=== PATIENT | female | born 1955 | race Caucasian/White ===

== ENCOUNTER 2016-12-27 21:16 | Inpatient (IN) | payer MEDICAID ==
[~2016-12-27] VITALS: Ht 149.9 cm; Wt 51.3 kg
[2016-12-27 21:19] VITALS: BP 133/60
--- NOTE | 2016-12-27 21:30 | NUR ---
PATIENT PRESENTS TO ED WITH SWOLLEN LEFT EYE. PT DENIES N/V/D; PT HAS OLD SKIN LESIONS BOTH LEGS AND ARMS. LESIONS NOTED ON LEFT SIDE OF SCALP AND SIDE OF HEAD. PT C/O RT SHOULDER BLADE PAIN. PT IS BLIND FROM HER DIABETES; AAOX4 WITH EVEN AND STEADY GAIT WITH ASSIST DUE TO HER BLINDNESS; LUNGS CLEAR BL; HR EVEN AND REGULAR; PT DENIES ANY FEVER, CP, SOB, OR COUGH AT THIS TIME; PATIENT STATES PAIN OF 8/10 AT THIS TIME; VSS; PATIENT POSITIONED FOR COMFORT; HOB ELEVATED; BEDRAILS UP X2; BED DOWN. ER MD MADE AWARE OF PT STATUS.
--- NOTE | 2016-12-27 21:45 | NUR ---
AMBULATED TO ER BED 7
--- NOTE | 2016-12-27 21:51 | NUR ---
Patient being evaluated by physician at bedside.
[2016-12-27] MEDS ORDERED: NACL 0.9% 1,000 ML IV ONE (22:05)
[2016-12-27] MEDS ORDERED: KETOROLAC 30 MG/ML VIAL IVP ONE (22:05)
[2016-12-27 22:24] LABS: BASOPHILS # (AUTO) 0.1 K/uL (0.00-0.22); EOSINOPHILS # (AUTO) 0.2 K/uL (0-0.4); EOSINOPHILS % (AUTO) 2.4 % (0.0-4.0); HEMATOCRIT 33.2 % (36-48); HEMOGLOBIN 10.9 g/dL (12.0-16.0); LYMPHOCYTES # (AUTO) 2.1 K/uL (2.5-16.5); LYMPHOCYTES % (AUTO) 21.6 % (20.5-51.1); MEAN CORPUSCULAR HEMOGLOBIN 28 pg (27-31); MEAN CORPUSCULAR HGB CONC 33 g/dL (33-37); MEAN CORPUSCULAR VOLUME 85 fL (80-94); MONOCYTES # (AUTO) 0.7 K/uL (0.8-1.0); MONOCYTES % (AUTO) 7.5 % (1.7-9.3); NEUTROPHILS # (AUTO) 6.7 K/uL (1.8-7.7); NEUTROPHILS % (AUTO) 67.5 % (42.2-75.2); PLATELET COUNT (AUTO) 282 K/uL (140-450); RED CELL DISTRIBUTION WIDTH 13.6 % (11.6-13.7); WHITE BLOOD COUNT (AUTO) 9.8 K/uL (4.8-10.8)
--- NOTE | 2016-12-27 22:30 | NUR ---
PIV STARTED. LABS DRAWN. PAIN MEDS GIVEN.
--- NOTE | 2016-12-27 22:35 | NUR ---
PT TO CT VIA ANGELA IN STABLE CONDITION
[2016-12-27 22:36] LABS: APPEARANCE,URINE SL CLOUDY (CLEAR); BILIRUBIN,URINE NEGATIVE (NEGATIVE); BLOOD, URINE 2+ (NEGATIVE); COLOR,URINE YELLOW (YELLOW); LEUKOCYTE ESTERASE ,URINE NEGATIVE (NEGATIVE); NITRITE, URINE NEGATIVE (NEGATIVE); PH,URINE 5.5 (5.0-9.0); PROTEIN,URINE 1+ (NEGATIVE); UGLUCOSE 3+ (NEGATIVE); UROBILINOGEN,URINE 0.2 EU/dL (0.2 - 1)
[2016-12-27 22:43] LABS: ANION GAP 11.3 (8-16); CALCIUM 8.7 mg/dL (8.5-10.1); CARBON DIOXIDE 30.1 mmol/L (21-32); CREATININE 0.9 mg/dL (0.6-1.3); POTASSIUM 4.4 mmol/L (3.5-5.1); TOTAL BILIRUBIN 0.5 mg/dL (0.0-1.0); TOTAL PROTEIN, SERUM 8.4 g/dL (6.4-8.2)
[2016-12-27 22:51] LABS: INR 1.1 (0.8-1.2); PARTIAL THROMBOPLASTIN TIME 27.3 secs (22-35.6); PROTHROMBIN TIME 10.3 secs (10.8-13.4)
[2016-12-27 22:52] LABS: LACTIC ACID 1.2 mmol/L (0.4-2.0)
[2016-12-27 22:53] LABS: BACTERIA,URINE 4+ /HPF (None Seen); MUCUS,URINE 4+ /LPF (None Seen); SQUAMOUS EPITHELIAL CELL,UR 0-3 (FEW) /LPF (0-3 (FEW))
--- NOTE | 2016-12-27 23:00 | NUR ---
PT RETURNED FROM CT
[2016-12-27] MEDS ORDERED: CLINDAMYCIN 900 MG in DEXTROSE 5% 100 ML IV ONE (23:05)
[2016-12-27] MEDS ORDERED: LEVOFLOXACIN 500 MG/D5W PREMIX 100 ML IV ONE (23:05)
--- NOTE | 2016-12-27 23:20 | NUR ---
BLOOD SUGAR RE-CK DONE, AND NOTIFIED.
[2016-12-27] MEDS ORDERED: CLINDAMYCIN 900 MG/6 ML VIAL IV ONE (23:25)
[2016-12-28] MEDS ORDERED: INSULIN HUMAN REGULAR 100 UNITS/ML 10 ML VIAL IVP ONE (00:10)
--- NOTE | 2016-12-28 01:17 | NUR ---
Patient will be admitted to care of DR GUO. Admited to TELE. Will go to 113B. Belongings list completed. Report to NINA JAUREGUI.
--- NOTE | 2016-12-28 01:30 | NUR ---
RECEIVED REPORT FROM ED RN FOR CONTINUITY OF CARE. PATIENT IS A&OX4 EAST TIMOR[place] SPEAKING, DISCUSSED PLAN OF CARE WITH PATIENT, ABLE TO VERBALIZE UNDERSTANDING. SHIFT ASSESSMENT DONE, VS TAKEN, STABLE. NO S/S OF RESPIRATORY DISTRESS NOTED ON ROOM AIR. PT DENIES PAIN AT THIS TIME. IV RT AC 22 GAUGE PATENT AND FLUSHED. PT HAS MULTIPLE LESIONS THROUGHOUT BODY AND LEFT EYE SWELLING, SEE PICTURES IN CHART. SAFETY/ FALL PRECAUTIONS ENFORCED. CALL LIGHT WITHIN REACH. WILL CONTINUE TO MONITOR.
[2016-12-28 02:00] VITALS: BP 137/74
--- NOTE | 2016-12-28 02:45 | NUR ---
BLOOD SUGAR TAKEN, 52, PAGED DR. MONSON, AWAITING REPLY.
--- NOTE | 2016-12-28 02:45 | NUR ---
BLOOD SUGAR RETAKEN, 131. NO S/S OF DISTRESS NOTED. Addendum: 12/28/16 at 0622 by Laura Ozuna RN WRONG TIME.
--- NOTE | 2016-12-28 02:53 | NUR ---
SPOKE TO DR. MONSON REGARDING LOW BLOOD SUGAR, DOCTORS TO PUT IN ORDERS.
--- NOTE | 2016-12-28 03:00 | NUR ---
BLOOD SUGAR RETAKEN, 131. NO S/S OF DISTRESS NOTED
[2016-12-28] MEDS ORDERED: ONDANSETRON 4 MG/2 ML VIAL IVP PRN (03:10)
[2016-12-28] MEDS ORDERED: ACETAMINOPHEN 325 MG TAB PO PRN (03:10)
[2016-12-28 04:00] VITALS: BP 152/64
--- NOTE | 2016-12-28 04:02 | NUR ---
VS TAKEN. PT USED BEDPAN, VOIDED. NO S/S OF DISTRESS NOTED.
[2016-12-28 04:30] LABS: CHOL/HDL RATIO 3.7 (1-4.5)
[2016-12-28 04:38] LABS: THYROID STIMULATING HORMONE 2.02 uIU/mL (0.34-3.76)
[2016-12-28] MEDS ORDERED: HYDROcodone/APAP 5/325 MG 1 TAB TAB ONE (05:13)
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
[2016-12-28 07:02] LABS: BASOPHILS # (AUTO) 0.3 K/uL (0.00-0.22); BASOPHILS % (AUTO) 3.9 % (0.0-2.0); EOSINOPHILS # (AUTO) 0.2 K/uL (0-0.4); EOSINOPHILS % (AUTO) 2.6 % (0.0-4.0); HEMATOCRIT 30.1 % (36-48); HEMOGLOBIN 9.8 g/dL (12.0-16.0); LYMPHOCYTES # (AUTO) 1.6 K/uL (2.5-16.5); LYMPHOCYTES % (AUTO) 18.2 % (20.5-51.1); MEAN CORPUSCULAR HEMOGLOBIN 28 pg (27-31); MEAN CORPUSCULAR HGB CONC 33 g/dL (33-37); MEAN CORPUSCULAR VOLUME 85 fL (80-94); MONOCYTES # (AUTO) 0.8 K/uL (0.8-1.0); MONOCYTES % (AUTO) 8.7 % (1.7-9.3); NEUTROPHILS # (AUTO) 5.9 K/uL (1.8-7.7); NEUTROPHILS % (AUTO) 66.6 % (42.2-75.2); PLATELET COUNT (AUTO) 249 K/uL (140-450); RED BLOOD CELL COUNT(AUTO) 3.55 MIL/uL (4.20-5.40); RED CELL DISTRIBUTION WIDTH 13.6 % (11.6-13.7); WHITE BLOOD COUNT (AUTO) 8.8 K/uL (4.8-10.8)
--- NOTE | 2016-12-28 07:24 | NUR ---
ENDORSED PATIENT TO JESSICA WOOD FOR CONTINUITY OF CARE, PATIENT IS IN STABLE CONDITION.
[2016-12-28] MEDS: NACL 0.9% 1,000 ML IV SCH ×2 (07:25→13:11)
--- NOTE | 2016-12-28 07:25 | NUR ---
RECEIVED REPORT FROM NINA JAUREGUI. PT IS RESTING IN BED, A/OX4, IV IS ON THE RT AC, PATENT, INTACT, INFUSING WELL, PT HAS SKIN LESIONS THROUGHOUT WHOLE BODY, HAS A RIGHT HEEL WOUND, NO S/S OF RESPIRATORY DISTRESS OR DISCOMFORT NOTED, DISCUSSED PLAN OF CARE WITH PT, PT VERBALIZED UNDERSTANDING, SAFETY/FALL PRECAUTIONS IN PLACE, ALL NEEDS ARE MET AT THIS TIME, CALL LIGHT IS WITHIN REACH, WILL CONTINUE TO MONITOR.
[2016-12-28] MEDS ORDERED: CLINDAMYCIN 300 MG in DEXTROSE 5% 50 ML IV SCH (07:30)
--- NOTE | 2016-12-28 07:51 | NUR ---
PATIENT HAS BEEN SCREENED AND CATEGORIZED HIGH NUTRITION RISK. PATIENT WILL BE SEEN WITHIN 1-2 DAYS OF ADMISSION. 12/28/16-12/29/[address]
[2016-12-28 08:00] VITALS: BP 136/71
[2016-12-28] MEDS ORDERED: DEXTROSE 50% 50 ML SYR IVP PRN (09:15)
--- NOTE | 2016-12-28 09:30 | NUR ---
PT RESTING IN BED, LISTENING TO THE TV, NO S/S OF RESPIRATORY DISTRESS OR DISCOMFORT NOTED, ALL NEEDS ARE MET AT THIS TIME, CALL LIGHT IS WITHIN REACH, WILL CONTINUE TO MONITOR.
--- NOTE | 2016-12-28 10:51 | NUR ---
NOTIFIED DR. ESTEVES OF PT DECREASED H/H.
[2016-12-28] MEDS: BLOOD GLUCOSE MONITORING 1 DEV DEV FS SCH ×3 (11:52→20:53)
[2016-12-28 12:00] VITALS: BP 158/68
[2016-12-28] MEDS: INSULIN LISPRO SLIDING SCALE 100 UNITS/ML VIAL SUBQ PRN ×2 (12:03→20:56)
--- NOTE | 2016-12-28 12:15 | NUR ---
PT IS RESTING IN BED, LISTENING TO TV, CALL LIGHT IS WITHIN REACH, WILL CONTINUE TO MONITOR.
[2016-12-28] MEDS: CLINDAMYCIN 300 MG in DEXTROSE 5% 50 ML IV SCH ×2 (12:24→18:15)
--- NOTE | 2016-12-28 12:45 | NUR ---
WOUND CARE EVALUATION NOTES: REASON FOR EVALUATION: MULTIPLE SKIN LESIONS COMPLETE SKIN ASSESSMENT DONE ON THIS 61 Y/O FEMALE PATIENT FROM HOME TO [facility], WITH INITIAL DIAGNOSIS OF UNCONTROLLED DIABETES. PAST MEDICAL HISTORY INCLUDE DIABETES AND OSTEOARTHRITIS. ALL ABOVE INFORMATION WAS OBTAINED FROM THE ADMISSION H&P. LABS ARE WBC 8.8, H/H 9.8/30.1, GLUCOSE 388, ALBUMIN 3.0, PT/INR 10.3/1.1 AND PTT 27.3. CURRENT MEDS INCLUDE LEVOFLOXACIN, CLINDAMYCIN, INSULIN AND NORCO. PATIENT IS AWAKE, ORIENTED TO PERSON, PLACE AND TIME. SKIN WARM TO TOUCH WNL, TOENAILS ARE ELONGATED AND THICKENED, NO EDEMA, NO HAIR GROWTH AND +1 BILATERAL PEDAL PULSES. URINE AND BOWEL CONTINENT, ABLE TO MAKE HER NEEDS KNOWN. RIGHT HIP SURGICAL SCARRING NOTED. RIGHT ARM PERIPHERAL IV PATENT AND INTACT. ABLE TO TURN SELF WITH MINIMAL ASSISTANCE. INITIAL PLAN OF CARE AND PRESSURE PREVENTIVE MEASURES DISCUSSED TRANSLATED BY PRIMARY RN, ABLE TO VERBALIZE UNDERSTANDING. INTEGUMENTARY: RIGHT LATERAL FOOT - OTHER ALTERED PENDING ARTERIAL U/S RIGHT LATERAL LOWER LEG - OTHER ALTERED PENDING ARTERIAL U/S LEFT LATERAL LOWER LEG - OTHER ALTERED PENDING ARTERIAL U/S LEFT TEMPORAL - PUSTULE LIKE SKIN LESION PARIETAL AREA - PUSTULE LIKE BLE, BUE, BACK - MULTIPLE DISCOLORATIONS AND SCARRING NOTED RECOMMENDATIONS: -PAINT SKIN LESIONS WITH BETADINE BIDWC AND LEAVE OPEN TO AIR --TURN AND REPOSITION PATIENT Q2H -ASSESS AND MONITOR SKIN CONDITION DURING POSITION CHANGE, PLEASE PAY PARTICULAR ATTENTION TO SACRALCOCCYX, ELBOWS AND HEELS -OFFLOAD BILATERAL HEELS BY PLACING PILLOWS UNDER CALVES AT ALL TIMES, UNLESS OTHERWISE CONTRAINDICATED -KEEP SKIN CLEAN AND DRY AT ALL TIMES. RECOMMENDATIONS DISCUSSED WITH PRIMARY RN AND RESIDENT PHYSICIAN, DR. ESTEVES.
[2016-12-28] MEDS: HYDROcodone/APAP 5/325 MG 1 TAB TAB PO PRN (12:57)
--- NOTE | 2016-12-28 12:57 | NUR ---
PT COMPLAINED OF 8/10 PAIN IN THE RIGHT FOOT, WILL MEDICATE WITH PRN PAIN MEDICATION.
[2016-12-28] MEDS ORDERED: POLYVINYL ALCOHOL 1.4% OP 15 ML SOL OP PRN (13:20)
--- NOTE | 2016-12-28 13:37 | NUR ---
12/28/16 RD INITIAL ASSESSMENT COMPLETED PLEASE REFER TO NUTRITION ASSESSMENT UNDER CARE ACTIVITY FOR ESTIMATED NUTRITIONAL NEEDS. RD RECOMMENDATIONS: 1. CONTINUE ON CCHO [address] WILL F/U 3-5 DAYS; MODERATE RISK. AUTUMN HERNANDEZ RD
[2016-12-28] MEDS: METHOCARBAMOL 500 MG TAB PO SCH ×2 (15:09→18:14)
--- NOTE | 2016-12-28 15:10 | NUR ---
PT IS SLEEPING IN BED, NO S/S OF RESPIRATORY DISTRESS OR DISCOMFORT NOTED, CALL LIGHT WITHIN REACH, WILL CONTINUE TO MONITOR.
--- NOTE | 2016-12-28 15:55 | NUR ---
ETL DATABASE DEVELOPER IS AT BEDSIDE.
[2016-12-28 16:00] VITALS: BP 120/63
--- NOTE | 2016-12-28 17:00 | NUR ---
PT IS SLEEPING AT THIS TIME.
--- NOTE | 2016-12-28 19:15 | NUR ---
ENDORSED PT TO NINA HENRY. FOR CONTINUITY OF CARE, PT STABLE AT THIS TIME.
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
[2016-12-28 19:20] LABS: AMPHETAMINE, URINE NEG. ng/ml (NEG <=1000); BARBITURATE, URINE NEG. ng/ml (NEG <=200); BENZODIAZEPINE, URINE NEG. ng/mL (NEG <=200); CANNABINOID, URINE NEG. ng/mL (NEG <=50); COCAINE, URINE NEG. ng/mL (NEG <=300); OPIATE, URINE NEG. ng/mL (NEG <=2000); PHENCYCLIDINE SCREEN,URINE NEG. ng/mL (NEG <=25)
[2016-12-28 20:00] VITALS: BP 130/68
--- NOTE | 2016-12-28 20:56 | NUR ---
BLOOD SUGAR 300, GAVE INSULIN PER MD ORDER, PT TOLERATED WELL. NO SOB, NO SIGNS OF DISTRESS. PT DENIES PAIN AT THIS TIME. IV SITE ASYMPTOMATIC, INTACT, PATENT, IVF RUNNING. PLAN OF CARE DISCUSSED WITH PT. SAFETY MEASURES IN PLACE. CALL LIGHT WITHIN REACH. WILL CONTINUE TO MONITOR.
[2016-12-29] VITALS: BP 149/75
--- NOTE | 2016-12-29 00:15 | NUR ---
VS STABLE ON ROOM AIR. NO SOB, NO SIGNS OF DISTRESS. PT DENIES PAIN AT THIS TIME. IV SITE ASYMPTOMATIC, INTACT, PATENT, IVF RUNNING. PLAN OF CARE DISCUSSED WITH PT. SAFETY MEASURES IN PLACE. CALL LIGHT WITHIN REACH. WILL CONTINUE TO MONITOR.
[2016-12-29] MEDS: CLINDAMYCIN 300 MG in DEXTROSE 5% 50 ML IV SCH ×4 (00:39→17:59)
--- NOTE | 2016-12-29 02:35 | NUR ---
PT ASLEEP IN BED. NO SOB, NO SIGNS OF DISTRESS. IV SITE ASYMPTOMATIC, INTACT, PATENT, IVF RUNNING. PLAN OF CARE DISCUSSED WITH PT. SAFETY MEASURES IN PLACE. CALL LIGHT WITHIN REACH. WILL CONTINUE TO MONITOR.
[2016-12-29 04:00] VITALS: BP 150/67
--- NOTE | 2016-12-29 04:20 | NUR ---
VS STABLE ON ROOM AIR. NO SOB, NO SIGNS OF DISTRESS. PT DENIES PAIN AT THIS TIME. IV SITE ASYMPTOMATIC, INTACT, PATENT, IVF RUNNING. PLAN OF CARE DISCUSSED WITH PT. APPLIED K-PAD TO RT SHOULDER. SAFETY MEASURES IN PLACE. CALL LIGHT WITHIN REACH. WILL CONTINUE TO MONITOR.
[2016-12-29] MEDS: BLOOD GLUCOSE MONITORING 1 DEV DEV FS SCH ×4 (06:16→22:07)
[2016-12-29 06:17] LABS: BASOPHILS # (AUTO) 0.1 K/uL (0.00-0.22); BASOPHILS % (AUTO) 1.4 % (0.0-2.0); EOSINOPHILS # (AUTO) 0.3 K/uL (0-0.4); HEMATOCRIT 32.3 % (36-48); HEMOGLOBIN 10.8 g/dL (12.0-16.0); LYMPHOCYTES # (AUTO) 2.1 K/uL (2.5-16.5); MEAN CORPUSCULAR HEMOGLOBIN 28 pg (27-31); MEAN CORPUSCULAR HGB CONC 33 g/dL (33-37); MEAN CORPUSCULAR VOLUME 84 fL (80-94); MONOCYTES # (AUTO) 0.5 K/uL (0.8-1.0); NEUTROPHILS # (AUTO) 5.7 K/uL (1.8-7.7); NEUTROPHILS % (AUTO) 64.6 % (42.2-75.2); PLATELET COUNT (AUTO) 291 K/uL (140-450); RED BLOOD CELL COUNT(AUTO) 3.84 MIL/uL (4.20-5.40); RED CELL DISTRIBUTION WIDTH 13.8 % (11.6-13.7); WHITE BLOOD COUNT (AUTO) 8.7 K/uL (4.8-10.8)
[2016-12-29] MEDS: INSULIN LISPRO SLIDING SCALE 100 UNITS/ML VIAL SUBQ PRN ×4 (06:17→22:07)
[2016-12-29 06:48] LABS: MAGNESIUM 1.9 mg/dL (1.8-2.4); PHOSPHORUS 3.9 mg/dL (2.5-4.9)
[2016-12-29 06:58] LABS: ANION GAP 7.8 (8-16); CALCIUM 8.3 mg/dL (8.5-10.1); CARBON DIOXIDE 32.6 mmol/L (21-32); CREATININE 0.9 mg/dL (0.6-1.3); POTASSIUM 4.4 mmol/L (3.5-5.1)
--- NOTE | 2016-12-29 07:25 | NUR ---
ENDORSED PT IN STABLE CONDITION TO NINA LOPEZ. ALL NEEDS HAVE BEEN MET AT THIS TIME.
--- NOTE | 2016-12-29 07:30 | NUR ---
RECEIVED REPORT FROM NINA HENRY. PT IS RESTING IN BED, PT IS BLIND BOTH EYES, IV IS ON RT AC, PATENT, INTACT, INFUSING WELL, PT HAS LESIONS THROUGH BOTH LOWER EXTREMITIES, NO S/S OF RESPIRATORY DISTRESS OR DISCOMFORT NOTED, DISCUSSED PLAN OF CARE WITH PT, PT VERBALIZED UNDERSTANDING, SAFETY/FALL PRECAUTIONS IN PLACE, CALL LIGHT WITHIN REACH, WILL CONTINUE TO MONITOR.
[2016-12-29 08:00] VITALS: BP 120/65
[2016-12-29] MEDS: METHOCARBAMOL 500 MG TAB PO SCH ×3 (09:15→17:27)
[2016-12-29] MEDS: FERROUS SULFATE 325 MG TABEC PO SCH (09:15)
[2016-12-29] MEDS: HYDROcodone/APAP 5/325 MG 1 TAB TAB PO PRN ×2 (09:15→17:28)
--- NOTE | 2016-12-29 09:15 | NUR ---
DUE MEDS GIVEN. PRN PAIN MEDICATION GIVEN, PT COMPLAINED OF 8/10 PAIN LEVEL, PT TOLERATED WELL, CALL LIGHT WITHIN REACH, WILL CONTINUE TO MONITOR.
[2016-12-29] MEDS: LACTOBACILLUS RHAMNOSUS GG 1 EACH CAP PO SCH (09:16)
[2016-12-29] MEDS: NACL 0.9% 1,000 ML IV SCH ×2 (09:17→23:54)
[2016-12-29] MEDS: LEVOFLOXACIN 750 MG/D5W PREMIX 150 ML IV SCH (09:23)
--- NOTE | 2016-12-29 10:28 | NUR ---
RECEIVED CALL FROM LAB. PT POSITIVE FOR MRSA NARES.
--- NOTE | 2016-12-29 11:30 | NUR ---
PT RESTING IN BED, LISTENING TO TV, NO S/S OF RESPIRATORY DISTRESS OR DISCOMFORT NOTED, CALL LIGHT WITHIN REACH, WILL CONTINUE TO MONITOR.
[2016-12-29 12:00] VITALS: BP 134/69
[2016-12-29 12:39] LABS: FERRITIN 187 ng/mL (15-150); FOLIC ACID > 20.00 ng/mL (>3.0); TRANSFERRIN 215 mg/dL (200-370)
--- NOTE | 2016-12-29 13:00 | NUR ---
PT SITTING UP IN BED EATING, CALL LIGHT WITHIN REACH, WILL CONTINUE TO MONITOR.
--- NOTE | 2016-12-29 13:20 | NUR ---
PT SLEEPING AT THIS TIME. Addendum: 12/29/16 at 1946 by Zuleima Parsons RN 1520 PT SLEEPING AT THIS TIME.
[2016-12-29 16:00] VITALS: BP 124/63
[2016-12-29] MEDS: CHLORHEXADINE GLUC 2% CLOTH TP SCH (18:01)
[2016-12-29] MEDS: MUPIROCIN 2% OINT 22 GM TUBE TP SCH (18:01)
--- NOTE | 2016-12-29 19:15 | NUR ---
ENDORSED PT TO DAIJA FOR CONTINUITY OF CARE. PT STABLE AT THIS TIME.
--- NOTE | 2016-12-29 19:20 | NUR ---
PATIENT IS CURRENTLY RESTING IN BED PATIENT IS LEGALLY BLIND SHE IS BOLIVIAN SPEAKING BUT SHE IS ABLE TO MAKE NEEDS KNOWN AND SHE HAS ALSO BEEN EDUCATED NOT TO GET OUT OF BED WITHOUT ASSISTANCE AND PATIENT VERBALIZES UNDERSTANDING.BED ALARM ON.PATIENT IVF INFUSING WELL IV SITE PATENT NO INFILTRATION NOTED.PATIENT HAS BOTH LOWER EXTREMITIES COVERED AND WRAPPED WILL CONTINUE TO OBSERVE.CALL LIGHT WITHIN REACH.
--- NOTE | 2016-12-29 19:21 | NUR ---
PATIENT CONTINUE TO USE THE K-PAD WARMER FOR HER RT SHOULDER.
--- NOTE | 2016-12-29 19:40 | NUR ---
Patient's Plan of Care was discussed and reviewed with LABORATORY APPARATUS GLASS GRINDER: DAIJA Flores
[2016-12-29 20:00] VITALS: BP 117/62
--- NOTE | 2016-12-29 22:07 | NUR ---
PATIENT STABLE RESTING IN BED BLOOD SUGAR CHECK DONE 304 BLOOD SUGAR RECHECKED AGAIN CURRENTLY 267. WILL ADMINISTER INSULIN ORDERED.
--- NOTE | 2016-12-29 22:10 | NUR ---
HS SNACK GIVEN TO THE PATIENT. PATIENT IS CURRENTLY EATING HER SNACK.BED ALARM ON WILL CONTINUE TO ASSIST THE PATIENT NEEDED.
--- NOTE | 2016-12-29 23:15 | NUR ---
PATIENT IS REQUESTING FOR ME TO CHECK HER BLOOD PRESSURE AND I DID TEMP 97.8 HR 81 B/P 125/71 O2SAT 99% ON ROOM AIR. PATIENT STATES,"I MIGHT BE HAVING SOME ANXIETY." PATIENT DENIES ANY CHEST PAIN OR SOB AT THIS TIME.WILL CONTINUE TO MONITOR.
--- NOTE | 2016-12-29 23:38 | NUR ---
PATIENT WAS ASSISTED TO THE BATHROOM BY DAYO CASTELLANOS.
[2016-12-30] VITALS: BP 126/67
--- NOTE | 2016-12-30 00:15 | NUR ---
PATIENT IS CURRENTLY RESTING IN BED QUIETLY NEEDS MET AND PATIENT ASSISTED TO THE BATHROOM NEEDED BY DAYO CASTELLANOS AND DAYO LARA.IVF INFUSING WELL WILL CONTINUE TO MONITOR.
[2016-12-30] MEDS: CLINDAMYCIN 300 MG in DEXTROSE 5% 50 ML IV SCH ×4 (00:49→17:16)
--- NOTE | 2016-12-30 03:25 | NUR ---
PATIENT IS CURRENTLY SLEEPING IN BED IVF INFUSING WELL IV SITE PATENT.NO PAIN OR DISCOMFORT NOTED WILL CONTINUE TO MONITOR PATIENT CONTINUES TO BE CLEAN AND DRY.CALL LIGHT WITHIN REACH.
--- NOTE | 2016-12-30 05:19 | NUR ---
PT IV LINE IS LEAKING AND NEEDLE IS OUT.OLD IV SITE CLEANED WITH ALCOHOL AND NEEDLE WAS REMOVED.NEW IV SITE RESTARTED TO RT HANG G#22 AT FIRST ATTEMPT WITH GOOD BLOOD RETURN.PT TOLERATED PROCEDURE WELL.IVF INFUSING WELL WILL CONTINUE TO MONITOR.
[2016-12-30] MEDS: BLOOD GLUCOSE MONITORING 1 DEV DEV FS SCH ×4 (06:12→20:19)
[2016-12-30] MEDS: INSULIN LISPRO SLIDING SCALE 100 UNITS/ML VIAL SUBQ PRN ×4 (06:13→20:22)
[2016-12-30 07:19] LABS: ANION GAP 8.8 (8-16); CALCIUM 8.6 mg/dL (8.5-10.1); CARBON DIOXIDE 31.3 mmol/L (21-32); CREATININE 0.7 mg/dL (0.6-1.3); POTASSIUM 4.1 mmol/L (3.5-5.1)
--- NOTE | 2016-12-30 07:21 | NUR ---
PATIENT STABLE REPORT ENDORSED TO NINA BENOIT SHE WILL RESUME CARE OF THE PATIENT.
--- NOTE | 2016-12-30 07:21 | NUR ---
RECEIVED REPORT FROM NIGHT NURSE. PT IS AAOX4 ARMENIAN SPEAKING. ON ROOM AIR, IV TO RIGHT HAND 22G INFUSING WELL. OLD SCABS TO BLE, BUE. DRESSING TO BOTH LEFT AND RIGHT LEGS, DRY AND INTACT. INITIAL ASSESSMENT COMPLETED. REVIEWED PLAN OF CARE WITH PT, PT VERBALIZED UNDERSTANDING. ALL SAFETY/FALL PRECAUTIONS MET, ALL NEEDS MET. CALL LIGHT WITHIN REACH. WILL CONTINUE TO MONITOR.
[2016-12-30 07:24] LABS: ALBUMIN 2.6 g/dL (3.4-5.0); MAGNESIUM 1.7 mg/dL (1.8-2.4); PHOSPHORUS 3.9 mg/dL (2.5-4.9)
[2016-12-30 07:27] LABS: BASOPHILS # (AUTO) 0.2 K/uL (0.00-0.22); BASOPHILS % (AUTO) 2.5 % (0.0-2.0); EOSINOPHILS # (AUTO) 0.3 K/uL (0-0.4); EOSINOPHILS % (AUTO) 3.7 % (0.0-4.0); HEMATOCRIT 31.4 % (36-48); HEMOGLOBIN 10.5 g/dL (12.0-16.0); LYMPHOCYTES % (AUTO) 25.9 % (20.5-51.1); MEAN CORPUSCULAR HEMOGLOBIN 28 pg (27-31); MEAN CORPUSCULAR HGB CONC 33 g/dL (33-37); MEAN CORPUSCULAR VOLUME 85 fL (80-94); MONOCYTES # (AUTO) 0.5 K/uL (0.8-1.0); MONOCYTES % (AUTO) 6.1 % (1.7-9.3); NEUTROPHILS # (AUTO) 4.6 K/uL (1.8-7.7); NEUTROPHILS % (AUTO) 61.8 % (42.2-75.2); PLATELET COUNT (AUTO) 298 K/uL (140-450); RED BLOOD CELL COUNT(AUTO) 3.68 MIL/uL (4.20-5.40); RED CELL DISTRIBUTION WIDTH 13.7 % (11.6-13.7); WHITE BLOOD COUNT (AUTO) 7.6 K/uL (4.8-10.8)
[2016-12-30 08:00] VITALS: BP 116/62
[2016-12-30] MEDS: FERROUS SULFATE 325 MG TABEC PO SCH (08:49)
[2016-12-30] MEDS: METHOCARBAMOL 500 MG TAB PO SCH ×3 (08:50→17:15)
[2016-12-30] MEDS: LACTOBACILLUS RHAMNOSUS GG 1 EACH CAP PO SCH (08:50)
--- NOTE | 2016-12-30 08:52 | NUR ---
DUE MEDICATIONS GIVEN. PT TOLERATED WELL. ALL NEEDS MET. CALL LIGHT, WITHIN REACH.
--- NOTE | 2016-12-30 10:45 | NUR ---
CHECKED IN ON PT. PT CURRENTLY RESTING IN BED. ALL NEEDS MET. CALL LIGHT WITHIN REACH. WILL CONTINUE TO MONITOR.
[2016-12-30] MEDS: MAGNESIUM OXIDE 400 MG TAB PO SCH ×2 (11:21→20:18)
[2016-12-30] MEDS: HYDROcodone/APAP 5/325 MG 1 TAB TAB PO PRN (12:16)
--- NOTE | 2016-12-30 12:24 | NUR ---
DUE MEDICATION GIVEN. PT TOLERATED WELL. PT CURRENTLY EATING EATING LUNCH. ALL NEEDS MET. CALL LIGHT WITHIN REACH. WILL CONTINUE TO MONITOR.
--- NOTE | 2016-12-30 14:25 | NUR ---
PT CURRENTLY SLEEPING. CALL LIGHT WITHIN REACH. WILL CONTINUE TO MONITOR.
[2016-12-30] MEDS: CHLORHEXADINE GLUC 2% CLOTH TP SCH (17:16)
[2016-12-30] MEDS: MUPIROCIN 2% OINT 22 GM TUBE TP SCH (17:16)
--- NOTE | 2016-12-30 17:19 | NUR ---
DUE MEDICATIONS GIVEN. ASSISTED PT TO RESTROOM AND BACK TO BED. ALL NEEDS MET. CALL LIGHT WITHIN REACH. WILL CONTINUE TO MONITOR.
[2016-12-30] MEDS ORDERED: INSU-1163 SQ (17:24)
[2016-12-30] MEDS ORDERED: LANTUS SUBQ (17:24)
--- NOTE | 2016-12-30 19:05 | NUR ---
ENDORSED PLAN OF CARE TO NIGHT NURSE, PT IN STABLE CONDITION.
--- NOTE | 2016-12-30 19:51 | NUR ---
PATIENT IS AWAKE ALERT ORIENTED SPEAKD MOSTLY KYRGYZ LEGALLY BLIND SHE WAS ASSISTED TO THE BATHROOM WITH THE ASSISTANCE OF DAYO LARA PATIENT WAS ABLE TO HAVE A BOWEL MOVEMENT.PT DENIES PAIN AND DISCOMFORT.IVF INFUSING WELL IV SITE REMAINS PATENT.SAFETY AND FALL PRECAUTIONS IMPLEMENTED.DRESSING TO BOTH LOWER LEGS CURRENTLY DRY AND INTACT.FREQUENT VISUAL CHECKS WILL BE DONE.
[2016-12-30 20:00] VITALS: BP 119/65
--- NOTE | 2016-12-30 20:00 | NUR ---
Patient's Plan of Care was discussed and reviewed with NATURALIST: DAIJA Flores
--- NOTE | 2016-12-30 20:18 | NUR ---
EDUCATION GIVEN TO THE PATIENT ON HER ROUTINE NIGHT MEDICATION SHE VERBALIZES UNDERSTANDING AND SHE TOOK HER MEDICATIONS.PATIENT WAS ALSO PROVIDED WITH A NIGHT NIGHT SNACK MARTA AND AMISH RODRIGUEZ PT STATES,"THANK YOU I WILL EAT IT LATER."WILL CONTINUE TO OBSERVE BED ALARM ON.
[2016-12-30] MEDS ORDERED: INSULIN DETEMIR 100 UNITS/ML 10 ML VIAL SUBQ SCH ×2 (21:00)
--- NOTE | 2016-12-30 22:15 | NUR ---
PATIENT IS SLEEPING QUIETLY IN BED NEEDS CONTINUE TO BE MET.
--- NOTE | 2016-12-31 00:05 | NUR ---
PATIENT ATE HER HS SNACK ALREADY AND CONTINUES TO BE ASSISTED TO USE THE BATHROOM AND ALSO THE BEDPAN,PT CONTINUES TO USE THE K-PAD WARMER FOR HER RT SHOULDER AND DENIES ANY PAIN OR DISCOMFORT.PATIENT IS ABLE TO TURN AND REPOSITION HERSELF IN BED.DRESSING TO BOTH LOWER LEGS REMAIN DRY AND INTACT.CALL LIGHT WITHIN REACH FREQUENT VISUAL CHECK DONE.WILL CONTINUE TO MONITOR.
[2016-12-31] MEDS: CLINDAMYCIN 300 MG in DEXTROSE 5% 50 ML IV SCH ×3 (00:06→11:31)
[2016-12-31 00:30] VITALS: BP 129/69
[2016-12-31] MEDS: NACL 0.9% 1,000 ML IV SCH (00:59)
--- NOTE | 2016-12-31 01:00 | NUR ---
PT IS EATING IN BED. FAMILY IS AT BEDSIDE. Addendum: 12/31/16 at 1523 by Kylee Riggins RN RIGHT TIME 1300
--- NOTE | 2016-12-31 02:33 | NUR ---
PATIENT CURRENTLY SLEEPING IN BED NO S/S OF HYPOGLYCEMIA NOTED,IVF INFUSING WELL IV SITE PATENT WILL CONTINUE TO MONITOR CALL LIGHT WITHIN REACH.
[2016-12-31] MEDS: HYDROcodone/APAP 5/325 MG 1 TAB TAB PO PRN ×2 (03:53→08:19)
--- NOTE | 2016-12-31 03:53 | NUR ---
PATIENT COMPLAINING OF PAIN 6/10 MODERATE PAIN PATIENT WAS MEDICATED ORDERED AND CONTINUES TO HAVE K-PAD APPLIED TO RT SHOULDER.CALL LIGHT WITHIN REACH WILL CONTINUE TO MONITOR.
--- NOTE | 2016-12-31 05:58 | NUR ---
ROUNDS MADE PATIENT IS CURRENTLY RESTING IN BED,PATIENT BECAME ANXIOUS AFTER SHE GOT HER BLOOD DRAWN AND SO I EXPLAINED TO THE PATIENT WHY THEY CAME TO DRAW BLOOD THEN AFTERWARDS PT STATES,"I FEEL A LITTLE BETTER NOW THAT I KNOW WHY THEY SHAHNAZ MY BLOOD AND SHE WENT BACK TO SLEEP."
[2016-12-31] MEDS: BLOOD GLUCOSE MONITORING 1 DEV DEV FS SCH ×3 (06:13→16:30)
--- NOTE | 2016-12-31 06:45 | NUR ---
PT STABLE SLEEPING WELL IVF INFUSING WELL.
[2016-12-31 07:08] LABS: ALBUMIN 2.3 g/dL (3.4-5.0); MAGNESIUM 1.8 mg/dL (1.8-2.4)
--- NOTE | 2016-12-31 07:15 | NUR ---
RECEIVED PATIENT REPORT AT BEDSIDE. PATIENT AWAKE, ALERT AND ORIENTED. NO S/S OF DISTRESS NOTED. UNNA BOOTS NOTED TO BLE. IV TO THE LEFT HAND INTACT WITH IVF INFUSING WELL. BED LOWERED WITH CALL LIGHT WITHIN REACH. WILL CONTINUE TO MONITOR
[2016-12-31 07:22] LABS: BASOPHILS # (AUTO) 0.1 K/uL (0.00-0.22); EOSINOPHILS # (AUTO) 0.3 K/uL (0-0.4); EOSINOPHILS % (AUTO) 3.9 % (0.0-4.0); HEMATOCRIT 29.3 % (36-48); HEMOGLOBIN 9.8 g/dL (12.0-16.0); LYMPHOCYTES # (AUTO) 2.3 K/uL (2.5-16.5); LYMPHOCYTES % (AUTO) 30.9 % (20.5-51.1); MEAN CORPUSCULAR HEMOGLOBIN 28 pg (27-31); MEAN CORPUSCULAR HGB CONC 33 g/dL (33-37); MEAN CORPUSCULAR VOLUME 85 fL (80-94); MONOCYTES # (AUTO) 0.5 K/uL (0.8-1.0); MONOCYTES % (AUTO) 7.3 % (1.7-9.3); NEUTROPHILS # (AUTO) 4.2 K/uL (1.8-7.7); NEUTROPHILS % (AUTO) 55.9 % (42.2-75.2); PLATELET COUNT (AUTO) 288 K/uL (140-450); RED BLOOD CELL COUNT(AUTO) 3.44 MIL/uL (4.20-5.40); RED CELL DISTRIBUTION WIDTH 13.8 % (11.6-13.7); WHITE BLOOD COUNT (AUTO) 7.4 K/uL (4.8-10.8)
[2016-12-31 08:00] VITALS: BP 120/63
[2016-12-31] MEDS: METHOCARBAMOL 500 MG TAB PO SCH ×2 (08:17→14:25)
[2016-12-31] MEDS: FERROUS SULFATE 325 MG TABEC PO SCH (08:17)
[2016-12-31] MEDS: LEVOFLOXACIN 750 MG/D5W PREMIX 150 ML IV SCH (08:18)
[2016-12-31] MEDS: LACTOBACILLUS RHAMNOSUS GG 1 EACH CAP PO SCH (08:18)
--- NOTE | 2016-12-31 08:30 | NUR ---
PATIENT AMBULATED WITH ASSIST TO THE BATHROOM
--- NOTE | 2016-12-31 08:45 | NUR ---
MADE DR ESTEVES AWARE OF PT'S C/O ITCHINESS. DR THOMAS PUT ORDERS
--- NOTE | 2016-12-31 11:00 | NUR ---
PT IN ROOM REQUESTED TO HAVE HER FACE WASHED AND HER BACK WASHED. I ASSISTED PT WITH A BED BATH. PT STATES HER ARMS ARE ITCHY. WILL FOLLOW UP WITH DR LINN MASON. PT IS SHOWS NO S/S OF DISTRESS.
[2016-12-31] MEDS: INSULIN LISPRO SLIDING SCALE 100 UNITS/ML VIAL SUBQ PRN (14:22)
[2016-12-31] MEDS ORDERED: LACT1.4C PO (14:56)
[2016-12-31] MEDS ORDERED: CEPH-1019 PO (14:56)
[2016-12-31] MEDS ORDERED: NITR100C7 PO (15:23)
[2016-12-31] MEDS ORDERED: [UNRECOGNIZED DRUG - CODE] PO (15:47)
[2016-12-31 15:58] VITALS: BP 149/66
--- NOTE | 2016-12-31 16:00 | NUR ---
PER MORALES BA TO REMOVE UNNA BOOTS FOR DISCHARGE. PATIENT'S NEPHEW PRESENT IN THE ROOM AND WAS GIVEN INSTRUCTIONS TO FOLLOW UP WITH THE PHOTOGRAPHY INSTRUCTOR. PATIENT'S NEPHEW VERBALIZED UNDERSTANDING
[2016-12-31] MEDS ORDERED: METH500T14 PO (16:12)
[2016-12-31] MEDS ORDERED: ACET-2869 PO (16:13)
[2016-12-31] MEDS ORDERED: INSU-1188 SC (16:41)
[2016-12-31] MEDS ORDERED: CHLO118S2 TP (16:42)
[2016-12-31] MEDS ORDERED: BACTO TP (16:42)
--- NOTE | 2016-12-31 17:15 | NUR ---
PT HAS BEEN DISCHARGED. ALL PAPERWORK SIGNED. DISCHARGE INSTRUCTIONS AND PRESCRIPTIONS GIVEN TO PATIENT'S NEPHEW. PATIENTS NEPHEW VERBALIZED UNDERSTANDING. DISCHARGED PHOTOS TAKEN AND PLACED IN CHART. ALL QUESTIONS ANSWERED. ALL BELONGINGS AND PRESCRIPTIONS IN PATIENT POSSESSION. IV DISCONTINUED WITH CANNULA INTACT. WRISTBANDS TAKEN OFF PATIENT. OFFERED WHEELCHAIR TO PATIENT. PATIENT DISCHARGED IN STABLE CONDITION.
== END 2016-12-31 17:15 | disposition home or self-care (01) | DRG 383 ==
LOC: MED 21:16 → MTU 12-28 00:25
PROVIDERS: ADMIT Family Medicine; ATTEND Family Medicine
PROC: 0JBQ0ZZ Excision of Right Foot Subcutaneous Tissue and Fascia, Open Approach (ICD-10-PCS; principal; 2016-12-28)
DX: L03.213 Periorbital cellulitis (principal); N17.0 Acute kidney failure with tubular necrosis; E43 Unspecified severe protein-calorie malnutrition; E11.621 Type 2 diabetes mellitus with foot ulcer; L97.519 Non-pressure chronic ulcer of other part of right foot with unspecified severity; E11.65 Type 2 diabetes mellitus with hyperglycemia; D64.9 Anemia, unspecified; H54.0 Blindness, both eyes; M19.011 Primary osteoarthritis, right shoulder; N39.0 Urinary tract infection, site not specified; E11.40 Type 2 diabetes mellitus with diabetic neuropathy, unspecified; E11.51 Type 2 diabetes mellitus with diabetic peripheral angiopathy without gangrene; E83.42 Hypomagnesemia; Z72.89 Other problems related to lifestyle; Z88.6 Allergy status to analgesic agent; Z22.322 Carrier or suspected carrier of Methicillin resistant Staphylococcus aureus; Z68.22 Body mass index [BMI] 22.0-22.9, adult
CPT/HCPCS: 36415; 70480; 71010; 73030; 80048; 80053; 80305; 81001; 82009; 82040; 82607; 82728; 82746; 82948; 83036; 83540; 83605; 83735; 83880; 84100; 84436; 84443; 84484; 85025; 85045; 85610; 85730; 87040; 87070; 87075; 87081; 87086; 87186; 93005; 93925; 93970; 96365; 96367; 96375; 99285; J1815; J1885; J1956; J2405; J3490; J7030; J7060; Q0092

== ENCOUNTER 2017-02-07 22:43 | Inpatient (IN) | payer MEDICAID ==
[~2017-02-07] VITALS: Ht 154.9 cm; Wt 49.9 kg
[~2017-02-07 22:43] MED LIST: ACET-2869 PO; BACTO TP; CHLO118S2 TP; INSU-1163 SQ; INSU-1188 SC; LACT1.4C PO; LANTUS SUBQ; METH500T14 PO; NITR100C7 PO; [UNRECOGNIZED DRUG - CODE] PO
[2017-02-07 22:48] VITALS: BP 130/57
--- NOTE | 2017-02-08 00:40 | NUR ---
TO ER OF1
[2017-02-08] MEDS ORDERED: NACL 0.9% 1,000 ML IV ONE (00:45)
--- NOTE | 2017-02-08 00:45 | NUR ---
Patient being evaluated by physician.
--- NOTE | 2017-02-08 00:48 | NUR ---
MOVED TO ER BED 8
--- NOTE | 2017-02-08 00:59 | NUR ---
61/F bib nephew for a medication refill for insulin. Pt then explains she was at the Analysis Eval[facility]ator office and was sent here for further evaluation of a skin infection. Pt states "I have an infection all over my body." Patient is AOX4, moldovan speaking. VSS. Pt legally blind. Daughter at bedside.
[2017-02-08 01:15] LABS: WHITE BLOOD COUNT (AUTO) 8.7 K/uL (4.8-10.8)
--- NOTE | 2017-02-08 01:15 | NUR ---
Patient noted to have existing wounds upon arrival to ER. Photos taken of wound and placed in chart. Wound covered with dressing. Physician informed. PHOTOS TAKEN BY EMT MARIBEL TO BE PRINTS AND PUT IN CHART BY WESTERN PHILOSOPHY PROFESSOR PRE HOUSE COLBY WESLEY
[2017-02-08 01:16] LABS: HEMATOCRIT 32.1 % (36-48); HEMOGLOBIN 10.6 g/dL (12.0-16.0); MEAN CORPUSCULAR HEMOGLOBIN 28 pg (27-31); MEAN CORPUSCULAR HGB CONC 33 g/dL (33-37); MEAN CORPUSCULAR VOLUME 85 fL (80-94); PLATELET COUNT (AUTO) 279 K/uL (140-450); RED BLOOD CELL COUNT(AUTO) 3.76 MIL/uL (4.20-5.40); RED CELL DISTRIBUTION WIDTH 13.1 % (11.6-13.7)
[2017-02-08 01:17] LABS: BASOPHILS % (AUTO) 2.7 % (0.0-2.0); EOSINOPHILS # (AUTO) 0.4 K/uL (0-0.4); EOSINOPHILS % (AUTO) 4.9 % (0.0-4.0); LYMPHOCYTES # (AUTO) 2.6 K/uL (2.5-16.5); LYMPHOCYTES % (AUTO) 29.5 % (20.5-51.1); MONOCYTES # (AUTO) 0.6 K/uL (0.8-1.0); MONOCYTES % (AUTO) 7.4 % (1.7-9.3); NEUTROPHILS # (AUTO) 4.9 K/uL (1.8-7.7); NEUTROPHILS % (AUTO) 55.5 % (42.2-75.2)
[2017-02-08 01:18] LABS: BASOPHILS # (AUTO) 0.2 K/uL (0.00-0.22)
[2017-02-08 01:20] LABS: ANION GAP 11.6 (8-16); CARBON DIOXIDE 28.5 mmol/L (21-32); POTASSIUM 4.1 mmol/L (3.5-5.1)
--- NOTE | 2017-02-08 01:20 | NUR ---
REPORT RECEIVED FROM ANDREI NICOLE.
--- NOTE | 2017-02-08 01:20 | NUR ---
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 PT IS LEGALLY BLIND WELL. PT HAS OPEN WOUND IN THE MIDDLE OF HER BACK APPROX 1CM X 1CM. PT DENIES N/V/D; SKIN IS PINK/WARM/DRY; AAOX4 WITH EVEN AND STEADY GAIT; LUNGS CLEAR BL; HR EVEN AND REGULAR; PT DENIES ANY FEVER, CP, SOB, OR COUGH AT THIS TIME; PATIENT STATES PAIN OF 8/10 AT THIS TIME; VSS; PATIENT POSITIONED FOR COMFORT; HOB ELEVATED; BEDRAILS UP X2; BED DOWN. ER MD MADE AWARE OF PT STATUS.
[2017-02-08 01:21] LABS: CALCIUM 9.2 mg/dL (8.5-10.1); CREATININE 0.8 mg/dL (0.6-1.3)
[2017-02-08 01:25] LABS: INR 1.1 (0.8-1.2); PARTIAL THROMBOPLASTIN TIME 26.1 secs (22-35.6)
--- NOTE | 2017-02-08 01:25 | NUR ---
Pt report given to Tawny WOOD. Transfer of care at this time.
[2017-02-08 01:28] LABS: ALBUMIN 3.2 g/dL (3.4-5.0); TOTAL BILIRUBIN 0.5 mg/dL (0.0-1.0); TOTAL PROTEIN, SERUM 8.1 g/dL (6.4-8.2)
--- NOTE | 2017-02-08 01:35 | NUR ---
assisted pt to restroom for ua due to pt being blind. ua obtained.
[2017-02-08 02:04] LABS: APPEARANCE,URINE CLEAR (CLEAR); BILIRUBIN,URINE NEGATIVE (NEGATIVE); BLOOD, URINE 2+ (NEGATIVE); COLOR,URINE YELLOW (YELLOW); LEUKOCYTE ESTERASE ,URINE NEGATIVE (NEGATIVE); NITRITE, URINE NEGATIVE (NEGATIVE); PH,URINE 5.5 (5.0-9.0); PROTEIN,URINE 2+ (NEGATIVE); UGLUCOSE 1+ (NEGATIVE); UROBILINOGEN,URINE 0.2 EU/dL (0.2 - 1)
[2017-02-08 02:06] LABS: BACTERIA,URINE 3+ /HPF (None Seen)
[2017-02-08] MEDS ORDERED: LEVOFLOXACIN 500 MG/D5W PREMIX 100 ML IV ONE (02:15)
[2017-02-08] MEDS ORDERED: LIDOCAINE 1% 500 MG/50 ML VIAL INJ ONE (02:20)
[2017-02-08] MEDS ORDERED: LIDOCAINE 1% ED 50 ML ONE (02:24)
--- NOTE | 2017-02-08 02:40 | NUR ---
WOUND ON THE MIDDLE OF THE LOWER BACK HAD I AND D PROCDURE PERFORMED BY PHYSICIAN FORCE DISPATCHER STUDENT. PT TOLERATED WELL.
[2017-02-08] MEDS: NACL 0.9% 1,000 ML IV SCH ×2 (02:47→22:47)
[2017-02-08] MEDS ORDERED: ACETAMINOPHEN 325 MG TAB PO PRN (02:50)
[2017-02-08] MEDS ORDERED: MORPHINE SULFATE 2 MG/ML SYR IVP PRN (02:50)
[2017-02-08] MEDS ORDERED: LORazepam 2 MG/ML VIAL IVP PRN (02:50)
[2017-02-08] MEDS ORDERED: ATA10 PO (03:11)
--- NOTE | 2017-02-08 03:25 | NUR ---
61 YEAR OLD ADMITTED FROM ER. PT ARRIVED TO UNIT VIA GURNEY. INITIAL ASSESSMENT COMPLETED. PT AAOX4. DAUGHTER AND NEPHEW AT BEDSIDE. PT HAS IV ON LEFT HAND G 22; ASYMPTOMATIC, PATENT AND INTACT INFUSING FLUIDS WELL. PT HAS A DRESSING ON RIGHT LOWER BACK S/P I & D FROM ABSCESS. PT HAS SKIN SCARS ON BACK AND BILATERAL EXTREMITIES. PT IS BLIND. ORIENTED PT TO ROOM AND SURROUNDINGS AND USE OF CALL LIGHT. EXPLAINED PLAN OF CARE TO PT AND SHE VERBALIZES UNDERSTANDING. INSTRUCTED PT ON HOW TO USE CALL LIGHT BY FEELING THE CALL LIGHT. SAFETY/FALL MEASURES IN PLACE. WILL CONTINUE TO MONITOR PT.
--- NOTE | 2017-02-08 03:27 | NUR ---
Patient will be admitted to care of DR GUO. Admited to TELE. Will go to room 114. Belongings list completed. Report to KLAUS.
[2017-02-08 04:00] VITALS: BP 133/63
--- NOTE | 2017-02-08 04:02 | NUR ---
PT COMPLAINING OF BACK PAIN 03/10. VS STABLE, WILL MEDICATE ORDERED.
[2017-02-08] MEDS: HYDROcodone/APAP 5/325 MG 1 TAB TAB PO PRN ×3 (04:05→17:11)
[2017-02-08] MEDS ORDERED: CLINDAMYCIN 600 MG/4 ML VIAL ONE (05:16)
[2017-02-08] MEDS: CLINDAMYCIN 600 MG in DEXTROSE 5% 50 ML IV SCH ×4 (05:18→23:41)
--- NOTE | 2017-02-08 05:29 | NUR ---
0600 ANTIBIOTIC INFUSING AT THIS TIME. APPLIED SCDS TO PT. CALL LIGHT WITHIN REACH. BED ALARM ON.
--- NOTE | 2017-02-08 07:32 | NUR ---
ENDORSED PLAN OF CARE TO DAY SHIFT NURSE. PT IN STABLE CONDITION.
--- NOTE | 2017-02-08 07:35 | NUR ---
RECEIVED REPORT FROM NINA ENRIQUE. PT IS A/OX4, AMBULATES WITH ASSIST, PT IS BLIND, PT HAS A DRESSING ON RT LOWER BACK, MINIMAL DRAINAGE, S/P 02/08/17 BACK ABSCESS I & D, IV ON THE LEFT WRIST, PATENT, INTACT, FLUSHING WELL, NO S/S OF RESPIRATORY DISTRESS OR DISCOMFORT NOTED, SAFETY/FALL PRECAUTIONS IN PLACE, DISCUSSED PLAN OF CARE WITH PT, PT VERBALIZED UNDERSTANDING, CALL LIGHT WITHIN REACH, WILL CONTINUE TO MONITOR.
[2017-02-08 08:00] VITALS: BP 114/60
--- NOTE | 2017-02-08 09:11 | NUR ---
PATIENT HAS BEEN SCREENED AND CATEGORIZED HIGH NUTRITION RISK. PATIENT WILL BE SEEN WITHIN 1-2 DAYS OF ADMISSION. 02/08/17-02/09/[address]
--- NOTE | 2017-02-08 09:40 | NUR ---
PT IS RESTING IN BED, NO S/S OF RESPIRATORY DISTRESS OR DISCOMFORT NOTED, CALL LIGHT WITHIN REACH, WILL CONTINUE TO MONITOR.
[2017-02-08] MEDS ORDERED: COMPOSITE DRESSING TP PRN (10:55)
--- NOTE | 2017-02-08 10:59 | NUR ---
WOUND CARE EVALUATION NOTES: REASON FOR EVALUATION: BACK ABSCESS AND R HEEL WOUND COMPLETE SKIN ASSESSMENT DONE ON THIS 61 Y/O FEMALE PATIENT FROM HOME TO [facility], WITH INITIAL DIAGNOSIS OF BACK ABSCESS. PAST MEDICAL HISTORY INCLUDE DM, LEGALLY BLIND AND OSTEOARTHRITIS. ALL ABOVE INFORMATION WAS OBTAINED FROM THE ADMISSION H&P. LABS ARE WBC 8.7, H/H 10.6/32.1, GLUCOSE 268, ALBUMIN 3.2, PT/INR 10.0/1.1 AND PTT 26.1. CURRENT MEDS INCLUDE LEVOFLOXACIN, CLINDAMYCIN, MORPHINE, ATIVAN AND NORCO. PATIENT IS AWAKE, ORIENTED TO PERSON, PLACE, DATE AND TIME. [place] SPEAKING ONLY, PRIMARY RN AT BEDSIDE TO TRANSLATE. SKIN WARM TO TOUCH WNL, TOENAILS WNL, NO EDEMA, NO HAIR GROWTH, AND +1 BILATERAL PEDAL PULSES. MULTIPLE DISCOLORATION AND SCARRING NOTED ALL OVER THE BODY. URINE AND BOWEL CONTINENT, ABLE TO MAKE HER NEEDS KNOWN. ABLE TO TURN SELF WITH MINIMAL ASSISTANCE. INITIAL PLAN OF CARE AND PRESSURE PREVENTIVE MEASURES DISCUSSED, ABLE TO VERBALIZE UNDERSTANDING. INTEGUMENTARY: RIGHT HEEL - ARTERIAL - 100% BLACK THIN SCAB. MID LOWER BACK - ABSCESS - S/P I&D IN ED. RECOMMENDATIONS: -CLEANSE MID BACK WITH NS AND GAUZE, PAT DRY, PACK WITH 1/4 INCH IODOFORM PACKING, COVER WITH GAUZE AND COMPOSITE DRESSING Q DAY AND PRN WITH SOILING/DISPLACEMENT -PAINT R HEEL WITH BETADINE BIDWC AND LEAVE OPEN TO AIR -TURN AND REPOSITION PATIENT Q2H TO LEFT AND RIGHT SIDE ONLY TO OFFLOAD MID BACK -ASSESS AND MONITOR SKIN CONDITION DURING POSITION CHANGE, PLEASE PAY ATTENTION TO SACRALCOCCYX, ELBOWS AND HEELS -OFFLOAD BILATERAL HEELS BY PLACING PILLOWS UNDER CALVES AT ALL TIMES, UNLESS OTHERWISE CONTRAINDICATED -KEEP SKIN CLEAN AND DRY AT ALL TIMES. RECOMMENDATIONS DISCUSSED WITH PRIMARY RN AND RESIDENT PHYSICIAN, DR. MILAN. WILL FOLLOW UP PATIENT Q 7 DAYS AND PRN. PLEASE CONTACT [facility] FOR ANY CONCERNS, QUESTIONS AND CHANGES IN SKIN CONDITION.
[2017-02-08 12:00] VITALS: BP 98/49
--- NOTE | 2017-02-08 12:00 | NUR ---
PT SLEEPING IN BED AT THIS TIME.
[2017-02-08] MEDS: GAUZE TP SCH (13:00)
[2017-02-08] MEDS: COMPOSITE DRESSING TP SCH (13:00)
--- NOTE | 2017-02-08 14:00 | NUR ---
PT IS RESTING IN BED, LISTENING TO TV, ALL NEEDS MET, CALL LIGHT WITHIN REACH WILL CONTINUE TO MONITOR.
[2017-02-08] MEDS ORDERED: DEXTROSE 50% 50 ML SYR IVP PRN (14:25)
--- NOTE | 2017-02-08 15:35 | NUR ---
02/08/17 RD INITIAL ASSESSMENT COMPLETED PLEASE REFER TO NUTRITION ASSESSMENT UNDER CARE ACTIVITY FOR ESTIMATED NUTRITIONAL NEEDS. 1. WHEN MEDICALLY FEASIBLE, INITIATE ORAL DIET: [address]. [address] TO FOLLOW-UP 2-3 DAYS; HIGH RISK MARY TAFOYA RD
[2017-02-08 16:00] VITALS: BP 109/48
--- NOTE | 2017-02-08 16:00 | NUR ---
PT SLEEPING IN BED AT THIS TIME.
[2017-02-08] MEDS: BLOOD GLUCOSE MONITORING 1 DEV DEV FS SCH ×2 (17:23→21:00)
[2017-02-08] MEDS: INSULIN LISPRO SLIDING SCALE 100 UNITS/ML VIAL SUBQ PRN ×2 (17:50→23:39)
--- NOTE | 2017-02-08 18:00 | NUR ---
PT SITTING IN BED, EATING A SNACK, CALL LIGHT WITHIN REACH.
--- NOTE | 2017-02-08 19:35 | NUR ---
PT ENDORSED TO NINA RAYMOND. FOR CONTINUITY OF CARE, PT STABLE AT THIS TIME.
--- NOTE | 2017-02-08 19:38 | NUR ---
RECEIVED PT FROM JESSICA WOOD PT IS AAOX4 AMBULATORY WITH MANAGER BEVERAGE LEGALLY BLIND , IV ON LEFT HAND INFUSING WELL ON TELEMETRY SR INITIAL ASSESSMENT DONE
[2017-02-08 20:00] VITALS: BP 107/57
--- NOTE | 2017-02-08 22:00 | NUR ---
BLOOD SUGAR TEST 208 COVERAGE WITH 4 UNITS HUMALOG SUBQ
[2017-02-09] VITALS: BP 98/51
--- NOTE | 2017-02-09 | NUR ---
PT REPOSITIONED ON TELMETRY SR NOT DISTRESS NOTED
[2017-02-09] MEDS: HYDROcodone/APAP 5/325 MG 1 TAB TAB PO PRN ×2 (00:43→16:52)
[2017-02-09] MEDS: GAUZE TP SCH ×2 (01:00→13:00)
[2017-02-09] MEDS ORDERED: LEVOFLOXACIN 500 MG/D5W PREMIX 100 ML IV SCH (02:00)
--- NOTE | 2017-02-09 03:45 | NUR ---
CULTURE TAKEN FROM BACK OPEN WOUND AND SENT TO LAB
[2017-02-09 04:00] VITALS: BP 116/47
[2017-02-09] MEDS: ONDANSETRON 4 MG/2 ML VIAL IVP PRN ×2 (05:48→10:47)
[2017-02-09] MEDS: CLINDAMYCIN 600 MG in DEXTROSE 5% 50 ML IV SCH ×3 (05:49→18:14)
[2017-02-09] MEDS: BLOOD GLUCOSE MONITORING 1 DEV DEV FS SCH ×3 (05:53→16:41)
[2017-02-09 06:10] LABS: BASOPHILS # (AUTO) 0.1 K/uL (0.00-0.22); EOSINOPHILS # (AUTO) 0.3 K/uL (0-0.4); EOSINOPHILS % (AUTO) 3.6 % (0.0-4.0); HEMATOCRIT 32.7 % (36-48); HEMOGLOBIN 11.2 g/dL (12.0-16.0); LYMPHOCYTES % (AUTO) 24.2 % (20.5-51.1); MEAN CORPUSCULAR HEMOGLOBIN 29 pg (27-31); MEAN CORPUSCULAR HGB CONC 34 g/dL (33-37); MEAN CORPUSCULAR VOLUME 86 fL (80-94); MONOCYTES # (AUTO) 0.7 K/uL (0.8-1.0); MONOCYTES % (AUTO) 8.6 % (1.7-9.3); NEUTROPHILS % (AUTO) 62.6 % (42.2-75.2); PLATELET COUNT (AUTO) 262 K/uL (140-450); RED BLOOD CELL COUNT(AUTO) 3.82 MIL/uL (4.20-5.40); RED CELL DISTRIBUTION WIDTH 13.5 % (11.6-13.7); WHITE BLOOD COUNT (AUTO) 8.1 K/uL (4.8-10.8)
[2017-02-09 06:28] LABS: MAGNESIUM 1.8 mg/dL (1.8-2.4); PHOSPHORUS 4.3 mg/dL (2.5-4.9)
--- NOTE | 2017-02-09 06:36 | NUR ---
BLOOD SUGAR TEST 108 PT ALSO WAS MEDICATED WITH ZOFRAN FOR NAUSEAS
[2017-02-09 06:40] LABS: ANION GAP 8.2 (8-16); CARBON DIOXIDE 29.6 mmol/L (21-32); CREATININE 0.8 mg/dL (0.6-1.3); POTASSIUM 3.8 mmol/L (3.5-5.1)
--- NOTE | 2017-02-09 07:25 | NUR ---
RECEIVED REPORT FROM NINA RAYMOND. PT IS A/OX4, AMBULATES WITH ASSIST, PT IS BLIND, PT HAS A DRESSING ON RT LOWER BACK, DRY AND INTACT, S/P 02/08/17 BACK ABSCESS I & D, IV ON THE LEFT WRIST, PATENT, INTACT, FLUSHING WELL, NO S/S OF RESPIRATORY DISTRESS OR DISCOMFORT NOTED, SAFETY/FALL PRECAUTIONS IN PLACE, DISCUSSED PLAN OF CARE WITH PT, PT VERBALIZED UNDERSTANDING, CALL LIGHT WITHIN REACH, WILL CONTINUE TO MONITOR.
[2017-02-09 08:00] VITALS: BP 121/51
--- NOTE | 2017-02-09 09:30 | NUR ---
PT IS SLEEPING IN BED AT THIS TIME.
--- NOTE | 2017-02-09 10:17 | NUR ---
ASSISTED PT TO THE RESTROOM AND BACK INTO TO BED, CALL LIGHT WITHIN REACH.
[2017-02-09 12:00] VITALS: BP 101/58
--- NOTE | 2017-02-09 12:00 | NUR ---
PT SLEEPING IN BED AT THIS TIME.
[2017-02-09] MEDS: INSULIN LISPRO SLIDING SCALE 100 UNITS/ML VIAL SUBQ PRN ×2 (12:07→16:59)
[2017-02-09] MEDS: COMPOSITE DRESSING TP SCH (13:00)
[2017-02-09] MEDS ORDERED: [UNRECOGNIZED DRUG - CODE] MC (13:33)
[2017-02-09] MEDS ORDERED: INSU-1163 SQ (13:33)
[2017-02-09] MEDS ORDERED: CLIN300C2 PO (13:33)
[2017-02-09] MEDS ORDERED: LANTUS SUBQ (13:33)
[2017-02-09] MEDS ORDERED: HUMSLIDE SUBQ (13:33)
[2017-02-09] MEDS ORDERED: BLOO1STR10 FS (13:33)
[2017-02-09] MEDS ORDERED: DOCU-67 PO (13:33)
[2017-02-09] MEDS ORDERED: LANC-486 MC (13:33)
[2017-02-09] MEDS ORDERED: ACET-2869 PO (13:33)
[2017-02-09] MEDS ORDERED: LACT1.4C PO (13:33)
[2017-02-09] MEDS ORDERED: BLOO1KIT MC (13:33)
[2017-02-09] MEDS ORDERED: INSU-1188 SQ (13:33)
[2017-02-09] MEDS ORDERED: METF500T PO (13:38)
--- NOTE | 2017-02-09 14:00 | NUR ---
PT SITTING IN BED LISTENING TO TV.
--- NOTE | 2017-02-09 15:42 | NUR ---
CALLED PT DAUGHTER AT [phone], I REACHED THE ANSWERING MACHINE, I LEFT A MESSAGE LETTING HER KNOW I WAS CALLING FROM [facility] TO INFORM HER, THE PT WAS BEING DISCHARGED TODAY AND WANTED TO KNOW WHAT TIME THEY WOULD BE ABLE TO PICK HER UP. I LEFT A CALL BACK NUMBER TO THE NURSES STATION AND MY EXTENSION.
[2017-02-09 16:00] VITALS: BP 120/62
--- NOTE | 2017-02-09 16:22 | NUR ---
I CALLED THE PATIENT'S NEPHEW KAYLYNN AT [phone], I LET HIM KNOW THE PATIENT WAS BEING DISCHARGED TODAY AND WAS READY TO BE PICKED UP. HER NEPHEW SAID HE WAS DRIVING FROM [place] AND WOULD BE ABLE TO PICK HER UP AROUND 1900 OR 1930.
--- NOTE | 2017-02-09 19:15 | NUR ---
PT ENDORSED TO NINA CHOE FOR CONTINUITY OF CARE, PT STABLE AT THIS TIME, DISCHARGE INSTRUCTIONS GIVE, PICTURE OF THE WOUND WAS TAKEN, INSTRUCTIONS OF THE WOUND CARE GIVEN TO PT, FOLLOW UP APPT GIVEN TO PT, PRESCRIPTION GIVEN TO PT.
--- NOTE | 2017-02-09 19:20 | NUR ---
PATIENT CURRENTLY RESTING IN BED WAITING FOR HER FAMILY TO COME SO THEY CAN TAKE HER HOME.
[2017-02-09] MEDS: NACL 0.9% 1,000 ML IV SCH (19:45)
--- NOTE | 2017-02-09 19:45 | NUR ---
PATIENT WAS ALREADY GIVEN DISCHARGE INSTRUCTIONS AND VERBALIZES UNDERSTANDING. DAUGHTER RASHID HERE WITH A FRIEND TO [employer] OR [employer] INSPECTOR THE PATIENT SHE WAS ALSO EXPLAINED ABOUT PATIENT DISCHARGE INSTRUCTIONS AND THAT PATIENT NEEDS TO MAKE A FOLLOW UP APPT WITH PCP, AND I MADE SURE PATIENT HAS ALL OF HER BELONGINGS WITH HER.SHE HAS DISCHARGE INSTRUCTIONS AND PRESCRIPTION, AND WHEN I ASKED HER IF SHE KNOW HOW TO DO THE WOUND CARE PATIENT STATES," THE MORNING NURSE GAVE ME ALREADY INSTRUCTIONS ON HOW TO CLEAN MY WOUND AND SHE GAVE ME SOME SUPPLIES TO TAKE HOME WITH ME IN A BAG AND SHE EXPLAINED IT TO HER DAUGHTER RASHID." IV LINE WAS DISCONTINUED AND TELEMONITOR WILL BE REMOVED WELL.PATIENT'S GETTING READY TO GO HOME.
--- NOTE | 2017-02-09 20:24 | NUR ---
TELEMONITOR HAS BEEN REMOVED PATIENT GOT DRESSED AND DAYO GUZMAN WILL ASSIST THE PATIENT VIA WHEELCHAIR WITH FAMILY TO THE CAR. PATIENT HAS BEEN DISCHARGED.
== END 2017-02-09 20:24 | disposition home or self-care (01) | DRG 383 ==
LOC: MED 22:43 → MTU 02-08 03:09
PROVIDERS: ADMIT Family Medicine; ATTEND Family Medicine
PROC: 0H96XZZ Drainage of Back Skin, External Approach (ICD-10-PCS; principal; 2017-02-08)
DX: L02.212 Cutaneous abscess of back [any part, except buttock and flank] (principal); N17.0 Acute kidney failure with tubular necrosis; D64.9 Anemia, unspecified; E11.65 Type 2 diabetes mellitus with hyperglycemia; E44.0 Moderate protein-calorie malnutrition; M19.011 Primary osteoarthritis, right shoulder; H54.8 Legal blindness, as defined in USA; E11.621 Type 2 diabetes mellitus with foot ulcer; L97.519 Non-pressure chronic ulcer of other part of right foot with unspecified severity; N39.0 Urinary tract infection, site not specified; E11.51 Type 2 diabetes mellitus with diabetic peripheral angiopathy without gangrene; M62.50 Muscle wasting and atrophy, not elsewhere classified, unspecified site; E11.319 Type 2 diabetes mellitus with unspecified diabetic retinopathy without macular edema; Z91.14 Patient's other noncompliance with medication regimen; Z88.6 Allergy status to analgesic agent; Z79.4 Long term (current) use of insulin; Z79.899 Other long term (current) drug therapy; Z72.89 Other problems related to lifestyle; Z68.20 Body mass index [BMI] 20.0-20.9, adult
CPT/HCPCS: 36415; 71010; 73030; 76881; 80048; 80053; 81001; 82948; 83605; 83735; 83880; 84100; 84484; 85025; 85610; 85730; 87040; 87070; 87075; 87081; 87086; 87186; 87205; 93005; 96361; 96365; 99285; J1815; J1956; J2001; J2405; J3490; J7030; J7060; Q0092